=== PATIENT | female | born 1990 | race Caucasian/White ===

== ENCOUNTER 2019-10-26 12:53 | Emergency (ER) | payer OTHER ==
[~2019-10-26] VITALS: Ht 160 cm; Wt 73.0 kg
[2019-10-26 13:33] VITALS: BP 121/87; Ht 160 cm; Wt 73.0 kg
== END 2019-10-26 16:25 | disposition home or self-care (01) ==
LOC: ED 12:53
DX: B34.9 Viral infection, unspecified (principal); R51 Headache